=== PATIENT | female | born 1960 | race Caucasian/White ===

== ENCOUNTER 2019-04-15 01:46 | Emergency (ER) | payer OTHER ==
[2019-04-15] MEDS ORDERED: Acetaminophen/HYDROcodone 325-5 MG Tab PO ONE (01:47)
--- NOTE | 2019-04-15 02:08 | EDM.PDOC ---
ED HPI GENERAL MEDICAL PROBLEM - General Chief Complaint: ENT Problem Stated Complaint: THROAT AND JAW PAIN Time Seen by Provider: 04/15/19 02:00 Source of Information: Reports: Patient History Limitations: Reports: No Limitations - History of Present Illness INITIAL COMMENTS - FREE TEXT/NARRATIVE: 58-year-old female with onset of sore throat about 4 days ago. This has progressively worsened with time and it seems to be more on the left side than the right side. Beginning approximately 2 days ago she developed left jaw pain with some swelling and this has been progressively worsening with time. She reports the pain is a sharp and throbbing pain that she rates as a 10/10. There has been no fever. There has been no nausea or vomiting. She has had no chest pain. No cough. No shortness of breath. She has had some left hand tingling and she reports the left hand tingling has been going on off and on for quite some time. The pain seems to be worse with palpation. Nothing really seems to make the pain better. She has been able to swallow normally but it does increase her pain. There are no other associated signs or symptoms. There are no other modifying factors. 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 Pain Score (Numeric/FACES): 10 - Related Data Allergies Allergy/AdvReac Type Severity Reaction Status Date / Time No Known Allergies Allergy Verified 04/15/19 02:00 Home Meds: Home Meds Amoxicillin/Potassium Clav [Augmentin 875-125 Tablet] 1 each PO BID 10 Days #20 tablet 04/15/19 [Rx] FLUoxetine HCl [Fluoxetine HCl] 80 mg PO DAILY 04/15/19 [History] Hydrocodone/Acetaminophen [[place] 5-325 Tablet] 1 - 2 tab PO Q6H PRN #10 tablet 04/15/19 [Rx] Levothyroxine Sodium [Synthroid] 150 mcg PO DAILY 04/15/19 [History] Meloxicam 7.5 mg PO DAILY 04/15/19 [History] Omeprazole 20 mg PO DAILY 04/15/19 [History] Past Medical History Gastrointestinal History: Reports: GERD Psychiatric History: Reports: Anxiety, Depression Endocrine/Metabolic History: Reports: Hypothyroidism - Past Surgical History HEENT Surgical History: Reports: Oral Surgery ([place] teeth extraction) Social & Family History - Family History Cardiac: Reports: CAD (In her father beginning in his late 50s and early 60s) - Tobacco Use Smoking Status *Q: Current Some Day Smoker - Alcohol Use Alcohol Use History: Yes Alcohol Use Frequency: Rarely - Living Situation & Occupation 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 Denies: Dizziness, Headache Psychiatric: Reports: No Symptoms Hematologic/Lymphatic: Reports: No Symptoms Immunologic: Reports: No Symptoms ED EXAM, ENT - Physical Exam Exam: See Below Exam Limited By: No Limitations General Appearance: Alert, WD/WN, Moderate Distress (She appears in acute pain.) Eye Exam: Bilateral Eye: EOMI, Normal Inspection, PERRL Ears: Normal External Exam, Hearing Grossly Normal Nose: Normal Inspection, Normal Mucousa, No Blood Mouth/Throat: Normal Inspection, Normal Oropharynx, Normal Teeth Head: Atraumatic, Facial Swelling (Along left jaw), Facial Tenderness (Along left jaw) Neck: Supple, Full Range of Motion, Lymphadenopathy (L) Respiratory/Chest: No Respiratory Distress, Lungs Clear, Normal Breath Sounds, No Accessory Muscle Use, Chest Non-Tender Cardiovascular: Normal Peripheral Pulses, Regular Rate, Rhythm, No JVD GI/Abdominal: Normal Bowel Sounds, Soft, Non-Tender, No Mass Back: Normal Inspection, Full Range of Motion Extremities: Normal Inspection, Normal Range of Motion, Non-Tender, No Pedal Edema, Normal Capillary Refill Neurological: Alert, Oriented, CN II-XII Intact, Normal Cognition, No Motor/ Sensory Deficits Skin: Warm, Dry, Intact, Normal Color, No Rash EKG INTERPRETATION EKG Date: 04/15/19 Time: 02:21 Rhythm: NSR Rate (Beats/Min): 67 [place]: Normal P-Wave: Present QRS: Normal ST-T: Normal QT: Normal Comparison: NA - No Prior EKG EKG Interpretation Comments: Normal EKG Course - Vital Signs Last Recorded V/S: Last Vital Signs Temp 35.4 C 04/15/19 01:50 Pulse 83 04/15/19 01:50 Resp 17 04/15/19 01:50 BP 126/81 04/15/19 01:50 Pulse Ox 100 04/15/19 01:50 - Orders/Labs/Meds Orders: Active Orders 24 hr Category Date Time Status EKG Documentation Completion [RC] ASDIRECTED Care 04/15/19 02:18 Active Amoxicillin [Amoxil] Med 04/15/19 02:58 Once 500 mg PO ONETIME ONE Amoxicillin/Clavulanate K [Augmentin 500 MG\125 MG] Med 04/15/19 02:58 Once 1 tab PO ONETIME ONE EKG 12 Lead [EK] Routine Ther 04/15/19 02:17 Ordered Labs: Laboratory Tests 04/15/19 Range/Units 02:35 Troponin I < 0.017 L (<0.017-0.056) ng/mL - Re-Assessments/Exams Free Text/Narrative Re-Assessment/Exam: 04/15/19 02:59: The patient having left jaw pain and left hand tingling I felt an EKG and troponin with the appropriate. The patient's EKG was reassuringly normal. A troponin was negative. This effectively rules out a heart attack. She appears to have a dental infection. It is also possible this could be a parotitis I will place the patient on an 875 by mouth twice a day for 10 days. She is to follow-up with a dentist as center she can arrange. Departure - Departure Time of Disposition: 03:05 Disposition: Home, Self-Care 01 Condition: Good Clinical Impression: Dental abscess Pharyngitis Qualifiers: Pharyngitis/tonsillitis etiology: unspecified etiology Qualified Code(s): J02.9 - Acute pharyngitis, unspecified - Discharge Information Prescriptions: Amoxicillin/Potassium Clav [Augmentin 875-125 Tablet] 1 each PO BID 10 Days #20 tablet Hydrocodone/Acetaminophen [[place] 5-325 Tablet] 1 - 2 tab PO Q6H PRN #10 tablet PRN Reason: Moderate to severe pain Instructions: Dental Abscess, [id number], Sore Throat, [id number] Referrals: Paola Wynne, [facility] [Primary Care Provider] - Forms: ED Department Discharge Additional Instructions: You appear to have a dental abscess along your left lower jaw. As we discussed, this could also be an infection or inflammation of your parotid gland or a salivary gland. You do have some swollen glands in your neck that are also causing him pain. Your EKG and the heart enzyme tests were normal/negative. This does not appear to be anything related to your heart. You may take ibuprofen 600 mg by mouth every 6 hours as needed for pain. Medication as prescribed (Augmentin 875 mg, hydrocodone 5/325). I gave you a prescription for hydrocodone and I also gave you a take home pack as well. You need to follow-up with the dentist said his you can arrange. Asked to the emergency department for trouble swallowing, trouble breathing or any other concerning sign or symptom. Sepsis Event Note - Evaluation Sepsis Screening Result: No Definite Risk - Focused Exam Vital Signs: Vital Signs Temp Pulse Resp BP Pulse Ox 04/15/19 01:50 35.4 C 83 17 126/81 100 Date Exam was Performed: 04/15/19 Time Exam was Performed: 02:59 - My Orders Last 24 Hours: My Active Orders 04/15/19 02:17 EKG 12 Lead [EK] Routine 04/15/19 02:18 EKG Documentation Completion [RC] ASDIRECTED 04/15/19 02:58 Amoxicillin [Amoxil] 500 mg PO ONETIME ONE Amoxicillin/Clavulanate K [Augmentin 500 MG\125 MG] 1 tab PO ONETIME ONE - Assessment/Plan Last 24 Hours: My Active Orders 04/15/19 02:17 EKG 12 Lead [EK] Routine 04/15/19 02:18 EKG Documentation Completion [RC] ASDIRECTED 04/15/19 02:58 Amoxicillin [Amoxil] 500 mg PO ONETIME ONE Amoxicillin/Clavulanate K [Augmentin 500 MG\125 MG] 1 tab PO ONETIME ONE
[2019-04-15] MEDS ORDERED: Amoxicillin 500 MG Cap PO ONE (02:58)
[2019-04-15] MEDS ORDERED: Amoxicillin/Clavulanate K 500-125 MG Tab PO ONE (02:58)
== END 2019-04-15 03:15 | disposition home or self-care (01) ==
LOC: FB.ED 01:46
DX: K04.7 Periapical abscess without sinus (principal); J02.9 Acute pharyngitis, unspecified; K21.9 Gastro-esophageal reflux disease without esophagitis; E03.9 Hypothyroidism, unspecified; F41.9 Anxiety disorder, unspecified; F17.200 Nicotine dependence, unspecified, uncomplicated; Z79.899 Other long term (current) drug therapy; Z79.890 Hormone replacement therapy
CPT/HCPCS: 36415; 84484; 93005; 99283; A9270